=== PATIENT | male | born 1975 | race African-American/Black ===

== ENCOUNTER 2016-06-19 03:57 | Emergency (ER) | payer SELFPAY ==
[~2016-06-19] VITALS: Ht 172.7 cm; Wt 65.8 kg
--- NOTE | 2016-06-19 04:16 | PHYS DOC ---
Past Medical History Past Medical History: No Pertinent History Past Surgical History: No Surgical History Smoking: Cigarettes Alcohol Use: None Drug Use: Phencyclidine Adult General Chief Complaint Chief Complaint: DRUG ABUSE HPI HPI Patient is a 41 year old male who presents by EMS after being chased by police for running naked in the street. Police placed him in cuffs for EMS transport. EMS did not give any meds and he remained calm. He admits to PCP use tonight. He denies injury, headache, hallucinations, suicidal ideation, homicidal ideation. Review of Systems Review of Systems Constitutional: Denies fever or chills [] Eyes: Denies change in visual acuity, redness, or eye pain [] HENT: Denies nasal congestion or sore throat [] Respiratory: Denies cough or shortness of breath [] Cardiovascular: No additional information not addressed in HPI [] GI: Denies abdominal pain, nausea, vomiting, bloody stools or diarrhea [] : Denies dysuria or hematuria [] Musculoskeletal: Denies back pain or joint pain [] Integument: Denies rash or skin lesions [] Neurologic: Denies headache, focal weakness or sensory changes [] Endocrine: Denies polyuria or polydipsia [] Physical Exam Physical Exam Constitutional: Well developed, well nourished, no acute distress, non-toxic appearance. [] HENT: Normocephalic, atraumatic, bilateral external ears normal, oropharynx moist, no oral exudates, nose normal. [] Eyes: PERRLA, EOMI, no nystagmus. [] Neck: Normal range of motion, no tenderness, supple, no stridor. [] Cardiovascular:Heart rate regular rhythm [] Lungs & Thorax: Bilateral breath sounds clear to auscultation [] Abdomen: Bowel sounds normal, soft, no tenderness. [] Skin: Warm, dry, no erythema, no rash. [] Back: No tenderness, no CVA tenderness. [] Extremities: ROM intact, no edema. [] Neurologic: Alert and oriented X 3, normal motor function, normal sensory function, no focal deficits noted, cranial nerves II through XII intact. [] Psychologic: Affect normal, judgement normal, mood normal. [] Current Patient Data Vital Signs Vital Signs Date Time Temp Pulse Resp B/P Pulse Ox O2 Delivery O2 Flow Rate FiO2 3/21/17 04:11 98.5 99 16 138/73 95 Room Air 98.5 Course & Med Decision Making Course & Med Decision Making Pertinent Labs and Imaging studies reviewed. (See chart for details) Discussed drug cessation. Return precautions given. He understands and agrees with plan. Dragon Disclaimer Dragon Disclaimer This electronic medical record was generated, in whole or in part, using a voice recognition dictation system. Departure Departure Impression: Primary Impression: PCP (phencyclidine) abuse Disposition: HOME, SELF-CARE Condition: STABLE Referrals: NO PCP (PCP) Patient Instructions: Alcohol and Drug Addiction, Finding Treatment Additional Instructions: Follow up with your primary care doctor and drug abuse program. Return for any concerns. Piper SNOW MD Jun 19, 2016 04:16
[2016-06-19 04:30] VITALS: BP 114/71
== END 2016-06-19 04:53 | disposition home or self-care (01) ==
LOC: EDBD → ER 03:57 → EEVIPCON 03:57 → MERGE 03:57 → ER 04:53
DX: F16.10 Hallucinogen abuse, uncomplicated (principal); F17.210 Nicotine dependence, cigarettes, uncomplicated
CPT/HCPCS: 99283

== ENCOUNTER 2016-08-12 21:54 | Emergency (ER) | payer SELFPAY ==
[~2016-08-12] VITALS: Ht 172.7 cm; Wt 80.7 kg
--- NOTE | 2016-08-12 22:05 | PHYS DOC ---
Past Medical History Past Medical History: No Pertinent History Past Surgical History: No Surgical History Alcohol Use: None Drug Use: Phencyclidine Adult General Chief Complaint Chief Complaint: SUBSTANCE ABUSE HPI HPI This is a 40-year-old male who admits to smoking PCP prior to arrival. Per EMS, the patient was agitated and was being held down by family when they arrived. The family states he was agitated and trying to be aggressive with a family member. Patient arrives on a backboard and is tied down. EMS does not report any incidents while in route. They state he was cooperative. He denies any specific complaints at this time. He has no known past medical history. He denies any other illicit substance use. He is oriented to person and place. He can follow all basic commands. He denies any suicidal or homicidal thoughts. Review of Systems Review of Systems Constitutional: Denies fever or chills [] Eyes: Denies change in visual acuity, redness, or eye pain [] HENT: Denies nasal congestion or sore throat [] Respiratory: Denies cough or shortness of breath [] Cardiovascular: No additional information not addressed in HPI [] GI: Denies abdominal pain, nausea, vomiting, bloody stools or diarrhea [] : Denies dysuria or hematuria [] Musculoskeletal: Denies back pain or joint pain [] Integument: Denies rash or skin lesions [] Neurologic: Denies headache, focal weakness or sensory changes [] Endocrine: Denies polyuria or polydipsia [] Allergies Allergies Allergies Coded Allergies Type Severity Reaction Last Updated Verified No Known Drug Allergies 08/12/16 No Physical Exam Physical Exam Constitutional: Well developed, well nourished, no acute distress, non-toxic appearance. [] HENT: Normocephalic, atraumatic, bilateral external ears normal, oropharynx moist, no oral exudates, nose normal. [] Eyes: PERRLA, EOMI, conjunctiva normal, no discharge. [] Neck: Normal range of motion, no tenderness, supple, no stridor. [] Cardiovascular:Heart rate regular rhythm, no murmur [] Lungs & Thorax: Bilateral breath sounds clear to auscultation [] Abdomen: Bowel sounds normal, soft, no tenderness, no masses, no pulsatile masses. [] Skin: Warm, dry, no erythema, no rash. [] Back: No tenderness, no CVA tenderness. [] Extremities: No tenderness, no cyanosis, no clubbing, ROM intact, no edema. [] Neurologic: Alert and oriented X 3, normal motor function, normal sensory function, no focal deficits noted. [] Psychologic: Affect normal, judgement normal, mood normal. [] Current Patient Data Vital Signs Vital Signs Date Time Temp Pulse Resp B/P (MAP) Pulse Ox O2 Delivery O2 Flow Rate FiO2 08/12/16 22:34 99.5 109 16 141/77 (98) 97 Room Air 99.5 Lab Values Laboratory Tests Test 08/12/16 22:59 Urine Opiates Screen Neg (NEG) Urine Methadone Screen Neg (NEG) Urine Barbiturates Neg (NEG) Urine Phencyclidine Screen Pos (NEG) Urine Amphetamine/Methamphetamine Neg (NEG) Urine Benzodiazepines Screen Neg (NEG) Urine Cocaine Screen Neg (NEG) Urine Cannabinoids Screen Neg (NEG) Urine Ethyl Alcohol Neg (NEG) EKG EKG EKG as interpreted by me shows a sinus tachycardia with a rate of 110 bpm. There is no acute injury pattern. This EKG does not meet STEMI criteria. Intervals are normal. Radiology/Procedures Radiology/Procedures [] Course & Med Decision Making Course & Med Decision Making Pertinent Labs and Imaging studies reviewed. (See chart for details) This 40-year-old male who admits smoking PCP prior to arrival will have an EKG and attempts to obtain a urine toxicology panel will be made. Patient is not combative at this time. He'll be observed in the department for several hours and likely discharged if he is cooperative. Patient remains cooperative and tolerating PO fluids in no acute distress. Upon my reassessment, patient is much more alert and has remained cooperative while in the department. There is no indication at this time to perform any other laboratory workup. His tachycardia has resolved. He states he feels comfortable going home in the care of his family. An attempt to reach the family will be made and he'll be discharged. Urine toxicology screen was positive for PCP only. Dragon Disclaimer Dragon Disclaimer This electronic medical record was generated, in whole or in part, using a voice recognition dictation system. Departure Departure Impression: Primary Impression: PCP (phencyclidine) abuse Disposition: HOME, SELF-CARE Admitting Physician: Other Condition: IMPROVED Referrals: NO PCP (PCP) Patient Instructions: Drug Abuse, FAQs Additional Instructions: Please follow up with your primary doctor in the next several days for your substance abuse and avoid abusing any illegal drugs. Return to the ER immediately if you develop any worsening of your symptoms. LUTHER RILEY DO August 12, 2016 22:05
[2016-08-12 23:05] VITALS: BP 136/60
[2016-08-12 23:16] LABS: BARBITURATES NEG (NEG); BENZODIAZEPINES NEG (NEG); CANNABINOIDS NEG (NEG); COCAINE NEG (NEG); METHADONE NEG (NEG); OPIATES NEG (NEG); PHENCYCLIDINE POS (NEG)
== END 2016-08-12 23:40 | disposition home or self-care (01) ==
LOC: ER 21:54
DX: F16.10 Hallucinogen abuse, uncomplicated (principal)
CPT/HCPCS: 80305; 80320; 99284; G0481

== ENCOUNTER 2021-04-03 13:53 | Emergency (ER) | payer SELFPAY ==
[~2021-04-03] VITALS: Ht 167.6 cm; Wt 80.9 kg
[2021-04-03 13:53] VITALS: BP 156/90
--- NOTE | 2021-04-03 14:18 | PHYS DOC ---
Past Medical History Past Medical History: No Pertinent History Past Surgical History: No Surgical History Smoking Status: Current Every Day Smoker Alcohol Use: Occasionally Drug Use: Phencyclidine General Adult EDM: Chief Complaint: SUBSTANCE ABUSE HPI: HPI: Patient is a 45 year old 45-year-old male patient with history of drug abuse presenting today to be evaluated after being found walking naked outside [facility]. Patient reports using PCP earlier today. Patient denies any complaints in the ED. He is very pleasant. Review of Systems: Review of Systems: Constitutional: Denies fever or chills. [] Eyes: Denies change in visual acuity. [] HENT: Denies nasal congestion or sore throat. [] Respiratory: Denies cough or shortness of breath. [] Cardiovascular: Denies chest pain or edema. [] GI: Denies abdominal pain, nausea, vomiting, bloody stools or diarrhea. [] : Denies dysuria. [] Musculoskeletal: Denies back pain or joint pain. [] Integument: Denies rash. [] Neurologic: Denies headache, focal weakness or sensory changes. [] Endocrine: Denies polyuria or polydipsia. [] Lymphatic: Denies swollen glands. [] Psychiatric: Psych evaluation, drug use Heart Score: C/O Chest Pain: N/A Risk Factors: Risk Factors: DM, Current or recent (<one month) smoker, HTN, HLP, family history of CAD, obesity. Risk Scores: Score 0 - 3: 2.5% MACE over next 6 weeks - Discharge Home Score 4 - 6: 20.3% MACE over next 6 weeks - Admit for Clinical Observation Score 7 - 10: 72.7% MACE over next 6 weeks - Early Invasive Strategies Allergies: Allergies: Allergies Coded Allergies Type Severity Reaction Last Updated Verified No Known Drug Allergies 08/12/16 No Physical Exam: PE: Constitutional: Well developed, well nourished, no acute distress, non-toxic appearance. [] HENT: Normocephalic, atraumatic, bilateral external ears normal, oropharynx moist, no oral exudates, nose normal. [] Eyes: PERRLA, EOMI, conjunctiva normal, no discharge. [] Neck: Normal range of motion, no tenderness, supple, no stridor. [] Cardiovascular:Heart rate regular rhythm, no murmur [] Lungs & Thorax: Bilateral breath sounds clear to auscultation [] Abdomen: Bowel sounds normal, soft, no tenderness, no masses, no pulsatile masses. [] Skin: Warm, dry, no erythema, no rash. [] Back: No tenderness, no CVA tenderness. [] Extremities: No tenderness, no cyanosis, no clubbing, ROM intact, no edema. [] Neurologic: Alert and oriented X 3, normal motor function, normal sensory function, no focal deficits noted. [] Psychologic: Very pleasant affect normal, judgement normal, mood normal. [] EKG: EKG: [] Radiology/Procedures: Radiology/Procedures: [] Course & Med Decision Making: Course & Med Decision Making Pertinent Labs and Imaging studies reviewed. (See chart for details) This is a 45-year-old male patient presented to the ED today via EMS to be evaluated after being found walking naked outside [facility]. Patient admits to using PCP earlier today. He has no medical complaints. UDS positive for PCP [id number] Meléndez in the ED evaluating patient. Patient was given resources on discharge. You were evaluated in the emergency room for PCP use. Please follow-up with the resources provided to you in the emergency room. Rosemarie Disclaimer: Roesmarie Disclaimer: This electronic medical record was generated, in whole or in part, using a voice recognition dictation system. Departure Departure Impression: Primary Impression: PCP (phencyclidine) abuse Disposition: 01 HOME / SELF CARE / HOMELESS Condition: STABLE Referrals: NO PCP (PCP) follow up with resources provided by [facility] Patient Instructions: Drug Abuse and Addiction-[facility] Additional Instructions: Please follow-up with resources provided to you in the ED for drug use STEVAN CHEN [employer] Apr 03, 2021 14:18
[2021-04-03 15:05] LABS: BARBITURATES NEG (NEG); BENZODIAZEPINES NEG (NEG); CANNABINOIDS NEG (NEG); COCAINE NEG (NEG); METHADONE NEG (NEG); OPIATES NEG (NEG); PHENCYCLIDINE POS (NEG)
[2021-04-03 15:07] LABS: AMPHETAMINE/METHAMPHETAMINE NEG (NEG)
== END 2021-04-03 16:30 | disposition home or self-care (01) ==
LOC: ER 13:53
DX: F16.10 Hallucinogen abuse, uncomplicated (principal); F17.200 Nicotine dependence, unspecified, uncomplicated
CPT/HCPCS: 80307; 99283